=== PATIENT | female | born 1995 | race Two or more races ===

== ENCOUNTER 2025-01-24 04:56 | Emergency (ER) | payer OTHER ==
[~2025-01-24] VITALS: Ht 160 cm; Wt 49.9 kg
[2025-01-24] MEDS ORDERED: CLINDAMYCIN PHOSPHATE 150 MG/ML (600mg) IM STA (05:53)
[2025-01-24] MEDS ORDERED: TETANUS & DIPHTHERIA TOX,ADULT 0.5 ML VIAL IM STA (05:53)
[2025-01-24] MEDS ORDERED: DIPHTH,PERTUSS(ACELL),TET VAC 0.5 ML SYRINGE IM ONE (05:54)
[2025-01-24] MEDS ORDERED: CLINDAMYCIN PHOSPHATE 150 MG/ML (900mg) ONE (05:54)
== END 2025-01-24 06:10 | disposition home or self-care (01) ==
LOC: ER 05:36
DX: S61.051A Open bite of right thumb without damage to nail, initial encounter (principal); W55.01XA Bitten by cat, initial encounter; Y93.89 Activity, other specified; Y92.89 Other specified places as the place of occurrence of the external cause; Y99.9 Unspecified external cause status